=== PATIENT | female | born 1985 | race Caucasian/White ===

== ENCOUNTER 2018-07-29 08:41 | Day surgery (SDC) | payer OTHER ==
[2018-07-29] MEDS ORDERED: OLIVE OIL 118 ML BTL MISC ONE (08:47)
[2018-07-29] MEDS ORDERED: TERBUTALINE SULFATE 1 MG/ML VIAL IV ONE (08:47)
[2018-07-29] MEDS ORDERED: OLIVE OIL 118 ML BTL ONE (08:48)
[2018-07-29] MEDS ORDERED: TERBUTALINE SULFATE 1 MG/ML VIAL ONE (08:49)
[2018-07-29 09:44] LABS: PLATELET COUNT 189 10^3/uL (150-400)
--- NOTE | 2018-07-29 09:44 | GHP ---
DATE OF ADMISSION: 07/29/2018 ADMISSION DIAGNOSIS: Intrauterine at 37+ weeks, at breech presentation. REASON FOR ADMISSION: Planned external cephalic version HISTORY OF PRESENT ILLNESS: The patient are a 33-year-old 1, para 0, who is 37+ weeks gestat ion. Her estimated date of confinement is 08/15/2018, dated by a last menstrual period of 11/08/2017 , consistent with a 1st-trimester ultrasound. She transferred to [facility] at [address] [facility]. Baby has been in a breech presentation and management options were reviewed with the amanda yee and patient is electing to proceed with an external cephalic version. Risks of placental abruption , rupture of membranes, distress, need for emergency and impact on baby were discusse d extensively with the patient and the father of the baby and they are signing consent and agree to felix ivory. MEDICAL HISTORY: Negative. MEDICATIONS: vitamins. SURGICAL HISTORY: Eye surgery x2. ALLERGIES: No known drug allergies. SOCIAL HISTORY: Patient is . 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 She denies tobacco, alcohol, or drug use. FAMILY MEDICAL HISTORY: Noncontributory. 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 Periods every 28 days, lasting 4 days. She is a 1, para 0 . Current has been uncomplicated with the exception of the breech presentation. The ayse nt does have a history of an abnormal Pap smear in 2011. She had a colposcopy in 2011 and 2014, whic h were both negative. She has a history of HPV but denies any history of any other sexually transmit martha diseases. REVIEW OF SYSTEMS: A 10-point review of systems is negative. Positive movement. No loss of f luid. No vaginal bleeding. She denies any headache or changes in vision. PHYSICAL EXAMINATION: VITAL SIGNS: The patient's vital signs are stable. GENERAL APPEARANCE: Aler t and oriented x3. PSYCH: Appropriate affect. MUSCULOSKELETAL: Grossly intact. HEART: Regular, regular. LUNGS: Clear to auscultation bilaterally. ABDOMEN: Gravid, nondistended, nontender. EXT REMITIES: Reveal no calf tenderness or edema. PELVIC: Deferred. is in the konrad breech pre sentation with subjectively adequate amniotic fluid. LABS: Blood type O positive. Antibody screen negative. Rubella immune. GBS positive. HB sAg negative. HIV negative. Her 50 g glucose was 112. ASSESSMENT/PLAN: A 33-year-old, 1, para 0, who is 37+ weeks gestation, here for an external cephalic version. Risks and benefits have been extensively reviewed with the patient and patient has been properly consented. /[id number]/MODL
[2018-07-29 10:14] VITALS: BP 103/72
[2018-07-29] MEDS ORDERED: LR 1,000 ML IV PRN (10:16)
--- NOTE | 2018-07-29 11:39 | GOP ---
DATE OF OPERATION: 07/29/2018 SURGEON: Petra Tom DO MANAGER MANAGEMENT: Katarina Vázquez CNM. PREOPERATIVE DIAGNOSIS: POSTOPERATIVE DIAGNOSIS: PROCEDURE PERFORMED: Attempted external cephalic version. FINDINGS: DESCRIPTION OF PROCEDURE: After status was found to be reassuring by nonstress test, patient w as given 0.25 mg of terbutaline intravenously, with a slow push. status remained reassuring. Baby had been previously found to be in a breech presentation and we attempted 2 forward rolls and fe tus tolerated the procedure. Baby went from being face toward maternal right to occiput posterior wi th the spine toward her back, so we decided to discontinue attempting external cephalic version as we could not get a good hold of the baby. status remained reassuring following the procedure. Jac agosto discussed labor precautions and kick counts, and patient was discharged to home. She will schedule a section after 39 weeks and patient is to call us and let us know if anything happens befo re then. Thank you end dictation. /[id number]/MODL
== END 2018-07-29 12:20 | disposition home or self-care (01) ==
LOC: FOBOP 08:41
PROVIDERS: ATTEND Obstetrics & Gynecology
DX: O32.1XX0 Maternal care for breech presentation, not applicable or unspecified (principal); Z3A.37 37 weeks gestation of pregnancy
CPT/HCPCS: J3105

== ENCOUNTER 2018-08-10 05:27 | Inpatient (IN) | payer OTHER ==
--- NOTE | 2018-07-31 17:59 | GHP ---
PLANNED PROCEDURE: Primary low transverse section for breech presentation. INDICATION: The patient is a 33-year-old, 1, para 0, who will be 39+ weeks gestation. Her estimated date of confinement is 08/15/2018 consistent with a last menstrual period of 11/08/2017 consistent with a 12 week ultrasound. Patient initiated care in [place] and moved to [place] for a job at early in . Her insurance changed and she transferred to [facility] at 25 weeks. Patient's has been overall uncomplicated. Infant was found to be in the breech presentation at 35 weeks gestation. The baby persistently in the breech presentation, underwent an external cephalic version at 37 weeks and 4 days and unfortunately that version was not successful and the baby is still in the breech presentation, so patient will be scheduled for primary low transverse section. The patient will continue doing maneuvers to try to get the baby to flip and obviously the C -section will be canceled if the baby is successful at flipping. Risks and benefits have been reviewed extensively with the patient. The patient has been properly consented. MEDICAL HISTORY: Varicella nonimmune. History of HPV. MEDICATIONS: vitamins and iron. SURGICAL HISTORY: Multiple eye surgeries. ALLERGIES: Celecoxib which causes swelling. SOCIAL HISTORY: Patient is . She works at . She denies tobacco, alcohol, or drug use. FAMILY MEDICAL HISTORY: Noncontributory. 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 Periods every 28 days, lasting 4 days. She is a 1, para 0. Current has been uncomplicated with the exception of the baby in breech presentation and undergoing attempted external cephalic version. The patient does have a history of abnormal Pap smears. The colposcopy was negative. Repeat Pap smears have been negative. She does have a history of HPV but denies any history of any other sexually transmitted diseases. PHYSICAL EXAMINATION: VITAL SIGNS: The patient's vital signs are stable. GENERAL APPEARANCE: Alert and oriented x3. NECK: Mobile and supple. MUSCULOSKELETAL: Grossly intact. PSYCH: Grossly intact. HEART: Rate is regular. LUNGS: Clear to auscultation bilaterally. ABDOMEN: Gravid, nondistended, nontender. EXTREMITIES: Reveal no calf tenderness or edema. The baby was noted to be in breech presentation. PELVIC: Cervical exam is deferred. LABS: Blood type O positive. Antibody screen negative. Rubella immune. GBS positive. HBsAg negative. HIV negative. Her 50 g glucose was 112. She is varicella nonimmune. REVIEW OF SYSTEMS: 10-point review of systems is negative. Positive movement. No loss of fluid. She denies any headaches or changes in vision. ASSESSMENT AND PLAN: A 33-year-old, 1, para 0, who will be 39+ weeks gestation with baby in breech presentation and failed external cephalic version. She will undergo a primary low transverse section at 39+ weeks. Risks of bleeding, infection, damage to bowel, bladder, major blood vessels were reviewed with the patient. The patient has been properly consented. /[id number]/MODL MTDD
[2018-08-10] MEDS ORDERED: CITRIC ACID/SODIUM CITRATE 30 ML UDCUP PO ONE (06:18)
[2018-08-10] MEDS ORDERED: LR 500 ML IV ONE (06:18)
[2018-08-10] MEDS ORDERED: ceFAZolin 2 GM/DEXTROSE 100 ML IV ONE (06:18)
[2018-08-10] MEDS ORDERED: LR 1,000 ML IV SCH (06:30)
[2018-08-10 06:47] LABS: PLATELET COUNT 223 10^3/uL (150-400)
[2018-08-10] MEDS ORDERED: BUPIVACAINE/DEXTROSE 7.5MG/ML 2 ML SPINAL AMP SP ONE (07:23)
[2018-08-10] MEDS ORDERED: morphINE PF 10 MG/10 ML INJ ONE (07:23)
[2018-08-10] MEDS ORDERED: morphINE PF 5 MG/10 ML INJ ONE (07:26)
--- NOTE | 2018-08-10 07:34 | PREANESOB ---
Obstetric Pre-Anesthesia Info - General Info Proposed Procedure: C/S NPO Start Time: 00:00 : 1 Para: 0 CARIDAD: 08/15/18 Gestational Age: 39 week(s) and 2 day(s) - Info Status: Full Term FHR Pattern: Reassuring - Labor Status Section History: Primary Indications for Current Section: Breech Labor Epidural: No Anesthesia Allergies/Adverse Reactions: Allergy/AdvReac Type Severity Reaction Status Date / Time celecoxib [From Celebrex] Allergy Verified 08/10/18 06:11 Home Medications: Medication Instructions Recorded Iron 1 tab PO DAILY 08/10/18 1 tab PO 08/10/18 Visit Medications: Generic Name Dose Route Start Last Admin Trade Name Freq PRN Reason Stop Dose Admin Lactated Ringer's 1,000 mls @ 125 mls/hr 08/10/18 06:30 08/10/18 07:03 Lr IV 08/11/18 06:29 1,000 mls CONT SHRUTHI Administration Discontinued Medications Generic Name Dose Route Start Last Admin Trade Name Freq PRN Reason Stop Dose Admin Bupivacaine HCl/Dextrose Confirm 08/10/18 07:23 Marcaine Spinal Administered 08/10/18 07:24 Dose 2 ml SP .STK-MED ONE Citric Acid/Sodium Citrate 30 ml 08/10/18 06:18 08/10/18 07:02 Bicitra PO 08/10/18 06:19 30 ml ONCALL ONE Administration Cefazolin Sodium/Dextrose 100 mls @ 200 mls/hr 08/10/18 06:18 08/10/18 07:02 Ancef IV 08/10/18 06:47 100 mls ONCALL ONE Administration Protocol Lactated Ringer's 500 mls @ 0 mls/hr 08/10/18 06:18 Lr IV 08/10/18 06:19 ONCE ONE As Directed Morphine Sulfate Confirm 08/10/18 07:23 Morphine Pf 10 Mg/10 Ml Administered 08/10/18 07:24 Dose 10 mg .ROUTE .STK-MED ONE Morphine Sulfate Confirm 08/10/18 07:26 Morphine Pf 5 Mg/10 Ml Administered 08/10/18 07:27 Dose 5 mg .ROUTE .STK-MED ONE - Anesthesia History Response to Local Anesthetics: Not Applicable Anesthesia & Operative History: No Prior Problems Family Anesthesia History: Not Applicable - Vital Signs Latest Vital Signs (Nursing): Temp Pulse Resp BP Pulse Ox 37.1 C 72 20 95/67 L 95 08/10/18 06:26 08/10/18 06:16 08/10/18 06:26 08/10/18 06:26 08/10/18 06:26 Height/Weight (Nursing): Height 167.64 cm Weight 70.307 kg - Focused Exam Neck exam: FROM Mallampati Score: Class 1 Mouth exam: normal dental/mouth exam Pulmonary: no respiratory distress Cardiovascular: regular rate and rhythym Labs: 08/10/18 06:02 Patient ABO/Rh O POSITIVE 08/10/18 06:02 - Plan Consent Signed and on Chart: Yes Patient/Guardian Understands and Agrees to Plan: Yes
[2018-08-10] MEDS ORDERED: METHYLERGONOVINE MAL 0.2 MG/ML INJ ONE (09:11)
[2018-08-10] MEDS ORDERED: NALOXONE HCL 0.4 MG/ML INJ IVP PRN (09:12)
[2018-08-10] MEDS ORDERED: ONDANSETRON 4 MG/2 ML VIAL IVP PRN (09:12)
[2018-08-10] MEDS ORDERED: METOCLOPRAMIDE 10 MG/2 ML VIAL IVP PRN (09:12)
[2018-08-10] MEDS ORDERED: BISACODYL 10 MG SUPP PR PRN (09:53)
[2018-08-10] MEDS ORDERED: POLYETHYLENE GLYCOL 3350 17 GM PKT PO PRN (09:53)
[2018-08-10] MEDS ORDERED: SIMETHICONE 80 MG TAB CHEW PO PRN (09:53)
[2018-08-10] MEDS ORDERED: LACTULOSE 20 GM/30 ML UDCUP PO PRN (09:53)
[2018-08-10] MEDS ORDERED: MAGNESIUM HYDROXIDE 30 ML UDCUP PO PRN (09:53)
[2018-08-10] MEDS ORDERED: DOCUSATE SODIUM 100 MG CAP PO PRN (09:53)
--- NOTE | 2018-08-10 09:55 | POSTANESTH ---
Post Anesthetic Evaluation Cardiovascular Status: Normal, Stable Respiratory Status: Normal, Stable Level of Consciousness/Mental Status: Can Participate in Eval, Alert and Oriented Pain Control: Adequate, Prn Tx Ordered Nausea/Vomiting Control: Adequate, Prn Tx Ordered Complications Possibly Related to Anesthesia: None Noted
--- NOTE | 2018-08-10 09:58 | OBDEL ---
Info Type: Primary Presentation at Delivery: Breech L&D Analgesia/Anesthesia Type: Spinal GBS+: Yes Intrapartum Medications: Generic Name Dose Route Start Last Admin Trade Name Freq PRN Reason Stop Dose Admin Lactated Ringer's 1,000 mls @ 125 mls/hr 08/10/18 06:30 08/10/18 07:03 Lr IV 08/11/18 06:29 1,000 mls CONT SHRUTHI Administration Discontinued Medications Generic Name Dose Route Start Last Admin Trade Name Freq PRN Reason Stop Dose Admin Citric Acid/Sodium Citrate 30 ml 08/10/18 06:18 08/10/18 07:02 Bicitra PO 08/10/18 06:19 30 ml ONCALL ONE Administration Cefazolin Sodium/Dextrose 100 mls @ 200 mls/hr 08/10/18 06:18 08/10/18 08:03 Ancef IV 08/10/18 06:47 100 mls ONCALL ONE Administration Protocol - Care 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 PRESS: Mikayla Hughes Indications for Delivery: Elective Operative Report - Delivery Pre-op Diagnoses: IUP 39 2/7 weeks, breech, failed external cephalic version Post-op Diagnoses: same as preop plus post atony treated with methergine x 1 History of Prior Section: No Nulliparous Prior to Delivery: No Indications for Current Section: Breech Procedure: Scheduled, Low Transverse Surgeon: Petra oTm Business Information Consultant: Courtney Moncada Anesthesiologist: Tariq Power Complications: Other (Specify) (post uterine atony) EBL: 800 Data CARIDAD: 08/15/18 Gestational Age: 39 week(s) and 2 day(s) [place] Delivery Date: 08/10/18 Delivery Time: 09:04 Sex of : Female Score (1 Min): 9 Score (5 Min): 9 ICD10 Worksheet Patient Problems: Problems Problem Status Onset Breech presentation Acute delivery delivered Acute
[2018-08-10] MEDS: KETOROLAC 30 MG/1 ML SDV IVP SCH ×3 (10:13→22:02)
[2018-08-10] MEDS: IBUPROFEN 600 MG TAB PO SCH ×2 (12:03→16:38)
[2018-08-10] MEDS: ACETAMINOPHEN 325 MG TAB PO SCH ×3 (12:45→17:31)
--- NOTE | 2018-08-10 19:57 | OBPP ---
Progress Note Assessment/Plan: Assessment: pod# 1 s/p PLTCS for breech breast feeding uncomplicated post course Plan: 08/10/18 19:55 Subjective/ Course: 08/10/18 19:56 patient is doing very well. pain is well controlled. normal lochia. tolerating diet. normal lochia. working on breast feeding. denies headache and changes in vision,. Objective: 08/10/18 06:02 Patient ABO/Rh O POSITIVE 08/10/18 06:02 Temp Pulse Resp BP Pulse Ox 36.5 C 82 14 91/49 L 99 08/10/18 15:10 08/10/18 15:10 08/10/18 15:10 08/10/18 15:10 08/10/18 15:10 Physical Exam - Physical Exam Neck: non-tender, full range of motion Respiratory: chest non-tender, lungs clear, normal breath sounds Cardiac/Chest: normal peripheral pulses, regular rate, rhythm Abdomen: normal bowel sounds, non-tender, other (fundus firm and non tender) Extremities: normal range of motion, non-tender, normal inspection, normal capillary refill Skin: normal color, warm/dry, other (incicion covered) Neuro/Psych: no motor/sensory deficits, alert, normal mood/affect, oriented x 3
--- NOTE | 2018-08-10 20:02 | PDHPUP ---
<Petra Tom - Last Filed: 08/10/18 19:59> History & Physical Update H&P update statement: This history and physical update is based on an assessment of the patient which was completed after admission or registration (within 24 hours), but prior to the surgery/procedure. DATE OF ADMISSION: 08/10/18 ADMISSION DIAGNOSIS: Intrauterine at 32 2/7+ weeks, breech presentation. REASON FOR ADMISSION: Planned primary low transverese c section HISTORY OF PRESENT ILLNESS: The patient are a 33-year-old 1, para 0, who is 39 2/7+ weeks gestation. Her estimated date of confinement is 08/15/2018 , dated by a last menstrual period of 11/08/2017, consistent with a 1st- trimester ultrasound. She transferred to [facility] at 25-weeks gestation. Baby has been in a breech presentation and management options were reviewed with the patient and patient is electing to proceed with an primary low transverse section. MEDICAL HISTORY: Negative. MEDICATIONS: vitamins. SURGICAL HISTORY: Eye surgery x2. ALLERGIES: No known drug allergies. SOCIAL HISTORY: Patient is . 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 She denies tobacco, alcohol, or drug use. FAMILY MEDICAL HISTORY: Noncontributory. 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 Periods every 28 days, lasting 4 days. She is a 1, para 0. Current has been uncomplicated with the exception of the breech presentation. she had a failed attempted external cephalic version. The patient does have a history of an abnormal Pap smear in 2012. She had a colposcopy in 2011 and 2014, which were both negative. She has a history of HPV but denies any history of any other sexually transmitted diseases. REVIEW OF SYSTEMS: A 10-point review of systems is negative. Positive movement. No loss of fluid. No vaginal bleeding. She denies any headache or changes in vision. PHYSICAL EXAMINATION: VITAL SIGNS: The patient's vital signs are stable. GENERAL APPEARANCE: Alert and oriented x3. PSYCH: Appropriate affect. MUSCULOSKELETAL: Grossly intact. HEART: Regular, regular. LUNGS: Clear to auscultation bilaterally. ABDOMEN: Gravid, nondistended, nontender. EXTREMITIES: Reveal no calf tenderness or edema. PELVIC: Deferred. is in the konrad breech presentation with subjectively adequate amniotic fluid. LABS: Blood type O positive. Antibody screen negative. Rubella immune. GBS positive. HBsAg negative. HIV negative. Her 50 g glucose was 112. ASSESSMENT/PLAN: A 33-year-old, 1, para 0, who is 39 2/7 weeks gestation, here for a primary low transverse c section Risks and benefits have been extensively reviewed with the patient and patient has been properly consented. <Sonja Ortega - Last Filed: 08/11/18 09:32> History & Physical Update H&P update statement: This history and physical update is based on an assessment of the patient which was completed after admission or registration (within 24 hours), but prior to the surgery/procedure. H&P update: changes noted (admit diagnosis is incorrect -- pt has 39w2d gestation, not 32w2d)
[2018-08-10] MEDS: SENNOSIDES/DOCUSATE SODIUM TAB PO SCH (22:02)
[2018-08-11] MEDS: ACETAMINOPHEN 325 MG TAB PO SCH ×5 (00:19→21:58)
[2018-08-11] MEDS: IBUPROFEN 600 MG TAB PO SCH ×5 (00:19→21:57)
[2018-08-11] MEDS: KETOROLAC 30 MG/1 ML SDV IVP SCH (04:07)
--- NOTE | 2018-08-11 06:17 | GOP ---
DATE OF OPERATION: 08/10/2018 SURGEON: Petra Tom DO DECORATING MACHINE TENDER: Courtney Moncada ANESTHESIOLOGIST: Tariq Power MD PREOPERATIVE DIAGNOSIS: 1. Intrauterine at 39 and 2/7 weeks' gestation. 2. Konrad breech presentation status failed external cephalic version. POSTOPERATIVE DIAGNOSIS: 1. Intrauterine at 39 and 2/7 weeks' gestation. 2. Konrad breech presentation status failed external cephalic version. 3. atony treated with Methergine 0.2 mg x1. PROCEDURE PERFORMED: Primary low transverse section. FINDINGS: 1. Viable female in the konrad breech presentation at 9:04 a.m. Apgars were 9 and 9. 2. Intact placenta with 3-vessel cord. 3. Normal ovaries, uterus, tubes. ESTIMATED BLOOD LOSS: 800 cc. INDICATIONS: The patient is a 33-year-old, 1, para 0, who transferred to [facility] at 26 weeks' . She had regular care. Baby was found to be in a breech presentation at 36+ weeks at presentation. The patient attempted an external cephalic version which was unsuccessful. She tried multiple other maneuvers, but they were not successful. Baby was found to still be in a breech presentation at 39 weeks' gestation. She presented for a scheduled primary low transverse section. Risks and benefits of the procedure were reviewed with the patient and the patient was properly consented. DESCRIPTION OF PROCEDURE: The patient was taken to the operating room with intravenous fluids in place. She was given 2 g of Ancef intravenously and seated on the operating room table where spinal anesthesia was obtained. She was then repositioned into the dorsal supine position with a leftward tilt. A Samaniego catheter was then placed. Venodynes were placed on her lower extremities. She was then prepped and draped in a normal sterile fashion. Anesthesia was assessed and found to be adequate. A Pfannenstiel skin incision was then made 2 fingerbreadths above the pubic symphysis. The incision was then carried through to the underlying layer of fascia with the Bovie. The fascia was then nicked in the midline and the fascial incision was extended laterally. The superior aspect of the fascial incision was then grasped with a Alvin, tented up, and the underlying rectus muscle dissected off bluntly with the Bovie. The rectus muscle was then in the midline. The peritoneum was then identified, tented up, and entered sharply with Metzenbaum scissors. The incision was extended superiorly and inferiorly with excellent visualization of the bladder. The bladder blade was then inserted. The vesicouterine peritoneum was identified, tented up, and entered sharply with the Metzenbaum scissors. The incision was extended laterally and a bladder flap was created digitally. The bladder blade was then reinserted and the uterus was then incised in a low transverse fashion with a scalpel. The uterine incision was extended laterally. Clear fluid was noted. The 's buttocks were delivered without difficulty and the legs were then delivered, arms were rotated and the head was then delivered without difficulty. No obvious causes for breech presentation were noted. Delayed cord clamping x1 minute was performed. Cord was then clamped x2 and cut and the infant was handed off to awaiting nurse practitioner. Intact placenta with 3- vessel cord delivered without difficulty. The uterus was then exteriorized and cleared of all clots and debris and wrapped in a moist laparotomy sponge. The bladder blade was then reinserted. Ovaries, uterus, and tubes were unremarkable. The uterus was noted to be having decreased tone, so 0.2 mg of Methergine was given intramuscularly. The hysterotomy was closed with 0 Vicryl in a running locked stitch. A second 0 Vicryl suture was used to imbricate the uterine incision. Hemostasis was assured. The uterus was then returned to the patient's abdomen. The gutters were cleared of all clots and debris. The uterus remained hemostatic. Peritoneum was reapproximated with 3-0 Vicryl in a running fashion. Rectus muscle was reapproximated with 2-0 Vicryl in a running fashion. Fascia was closed with 0 Vicryl in a running fashion. Kaylyn tissue was reapproximated with 2-0 Vicryl in a running fashion. The subcuticular layer was then closed with 3-0 in a running subcuticular fashion. Sponge, lap, and needle counts were correct x2. The patient was transferred to the recovery room in stable condition. /[id number]/MODL MTDD
[2018-08-11] MEDS: SENNOSIDES/DOCUSATE SODIUM TAB PO SCH ×2 (09:04→19:32)
--- NOTE | 2018-08-11 10:06 | OBPP ---
Progress Note Assessment/Plan: Assessment: s/p primary c/s--POD 1 anemia Plan: iron BID, routine care 08/11/18 09:56 Subjective/ Course: 08/10/18 19:56 patient is doing very well. pain is well controlled. normal lochia. tolerating diet. normal lochia. working on breast feeding. denies headache and changes in vision,. 08/11/18 09:57 Pt doing well -- has been amb without problems, stone reg diet, doing ok with pain management so far with the duramorph coverage and Toradol. samano just removed. Baby has latched several times without problems. Disc water requirements. Disc iron recs. Objective: 08/11/18 06:08 Patient ABO/Rh O POSITIVE 08/10/18 06:02 Temp Pulse Resp BP Pulse Ox 37.1 C 69 15 84/48 L 95 08/11/18 06:10 08/11/18 06:10 08/11/18 06:10 08/11/18 06:10 08/11/18 06:10 Uterine Position/Fundal Height: Umbilicus -1 Uterine Tone: Firm Physical Exam - Physical Exam Abdomen: non-tender (approp post op tenderness), soft, dressing (CDI, drsg in place) Extremities: non-tender, pedal edema (none) Skin: normal color, warm/dry Neuro/Psych: alert, normal mood/affect
[2018-08-11] MEDS: FERRO-SEQUELS 65 MG TAB.ER PO SCH ×2 (11:16→19:32)
[2018-08-11] MEDS: oxyCODONE IR 5 MG TAB PO PRN ×3 (13:08→22:19)
--- NOTE | 2018-08-11 15:07 | PDPAINCON ---
Pain Management Consultation Patient referred by : Giuseppe - Subjective Pain is: under control Activity: able to ambulate - Objective Technique: spinal opioid Continuous infusion: morphine Sensory and motor exam: block has resolved, no apparent ill effects - Assessment/Plan Assessment/Plan: pain well-controlled, continue current mgmt (Pt POD 1 C- section with spinal duramorph. Pt doing well. Pain under control. No complications.)
[2018-08-12] MEDS: ACETAMINOPHEN 325 MG TAB PO SCH ×4 (04:00→20:03)
[2018-08-12] MEDS: oxyCODONE IR 5 MG TAB PO PRN ×4 (04:01→20:04)
[2018-08-12] MEDS: IBUPROFEN 600 MG TAB PO SCH ×4 (04:01→20:04)
--- NOTE | 2018-08-12 09:08 | OBPP ---
Progress Note Assessment/Plan: Assessment: 1) s/p PCS secondary to breech and failed ECV POD #2 - pt is stable 2) Anemia - pt is asymptomatic Plan: Continue routine post-op care Encourage ambulation Cont iron support prn Plan for d/c home 08/1308/12/18 09:00 Subjective/ Course: 08/10/18 19:56 patient is doing very well. pain is well controlled. normal lochia. tolerating diet. normal lochia. working on breast feeding. denies headache and changes in vision,. 08/11/18 09:57 Pt doing well -- has been amb without problems, stone reg diet, doing ok with pain management so far with the duramorph coverage and Toradol. samano just removed. Baby has latched several times without problems. Disc water requirements. Disc iron recs. 08/12/18 09:02 Pt seen and examined. Sitting on side of bed eating breakfast. Having some incisional pain this am, relief with po meds-Oxy IR kimberley. helps. Pt is OOB, stone regular diet, voiding without difficulty and had BM x1. Minimal lochia. Denies any f/c/n/v/CP or SOB. Working on , baby girl has lost 8% of weight. Objective: 08/11/18 06:08 Patient ABO/Rh O POSITIVE 08/10/18 06:02 Temp Pulse Resp BP Pulse Ox 36.8 C 82 14 96/61 L 95 08/12/18 01:00 08/12/18 01:00 08/12/18 01:00 08/12/18 01:00 08/11/18 21:12 Uterine Position/Fundal Height: Umbilicus -2 Uterine Tone: Firm Physical Exam - Physical Exam General Appearance: WD/WN, alert, no apparent distress Respiratory: lungs clear, normal breath sounds Cardiac/Chest: regular rate, rhythm Abdomen: normal bowel sounds, non-tender (appropriate tenderness), soft, flatus (+), incision (C/D/I, well approximated) Extremities: non-tender, normal inspection Skin: normal color, warm/dry Neuro/Psych: alert, normal mood/affect, oriented x 3
[2018-08-12] MEDS: SENNOSIDES/DOCUSATE SODIUM TAB PO SCH ×2 (09:21→20:04)
[2018-08-12] MEDS: FERRO-SEQUELS 65 MG TAB.ER PO SCH ×2 (09:21→20:03)
[2018-08-13] MEDS: ACETAMINOPHEN 325 MG TAB PO SCH ×3 (02:07→14:14)
[2018-08-13] MEDS: IBUPROFEN 600 MG TAB PO SCH ×3 (02:07→14:14)
[2018-08-13] MEDS: oxyCODONE IR 5 MG TAB PO PRN ×3 (02:08→14:14)
[2018-08-13] MEDS: SENNOSIDES/DOCUSATE SODIUM TAB PO SCH (08:20)
[2018-08-13 08:27] VITALS: BP 101/62
[2018-08-13] MEDS: FERRO-SEQUELS 65 MG TAB.ER PO SCH (09:05)
--- NOTE | 2018-08-13 09:44 | OBPP ---
Progress Note Assessment/Plan: Assessment: Plan: Subjective/ Course: 08/10/18 19:56 patient is doing very well. pain is well controlled. normal lochia. tolerating diet. normal lochia. working on breast feeding. denies headache and changes in vision,. 08/11/18 09:57 Pt doing well -- has been amb without problems, stone reg diet, doing ok with pain management so far with the duramorph coverage and Toradol. samano just removed. Baby has latched several times without problems. Disc water requirements. Disc iron recs. 08/12/18 09:02 Pt seen and examined. Sitting on side of bed eating breakfast. Having some incisional pain this am, relief with po meds-Oxy IR kimberley. helps. Pt is OOB, stone regular diet, voiding without difficulty and had BM x1. Minimal lochia. Denies any f/c/n/v/CP or SOB. Working on , baby girl has lost 8% of weight. Objective: 08/11/18 06:08 Patient ABO/Rh O POSITIVE 08/10/18 06:02 Temp Pulse Resp BP Pulse Ox 36.1 C 74 16 101/62 97 08/13/18 08:00 08/13/18 08:00 08/13/18 08:00 08/13/18 08:00 08/13/18 08:00
--- NOTE | 2018-08-13 11:23 | OBGCSDC ---
General Delivery Information - General Info : 1 Para: 1 Abortions: 0 Type: Primary L&D Analgesia/Anesthesia Type: Spinal Admission Date: 08/10/18 Labs: Patient ABO/Rh O POSITIVE 08/10/18 06:02 Hct 28.4 % (38.0-47.0) L 08/11/18 06:08 - Hospital Course : 08/10/18 19:56 patient is doing very well. pain is well controlled. normal lochia. tolerating diet. normal lochia. working on breast feeding. denies headache and changes in vision,. 08/11/18 09:57 Pt doing well -- has been amb without problems, stone reg diet, doing ok with pain management so far with the duramorph coverage and Toradol. samano just removed. Baby has latched several times without problems. Disc water requirements. Disc iron recs. 08/12/18 09:02 Pt seen and examined. Sitting on side of bed eating breakfast. Having some incisional pain this am, relief with po meds-Oxy IR kimberley. helps. Pt is OOB, stone regular diet, voiding without difficulty and had BM x1. Minimal lochia. Denies any f/c/n/v/CP or SOB. Working on , baby girl has lost 8% of weight. - Delivery Providers Surgeon: Petra Tom Sustainability Specialist: Courtney Moncada Anesthesiologist: Tariq Power - Delivery Indications for Current Section: Breech Surgical Procedures: Scheduled, Low Transverse Intra-op Complications: Other (Specify) (post uterine atony) EBL: 800 [place] Data CARIDAD: 08/15/18 Gestational Age: 39 week(s) and 5 day(s) [place] Delivery Date: 08/10/18 Delivery Time: 09:04 Sex of Infant: Female [place] Weight (gm): 3014 kg Score (1 Min): 9 Score (5 Min): 9
== END 2018-08-13 18:25 | disposition home or self-care (01) | DRG 788 ==
LOC: FLD 05:27 → FOB 12:40
PROVIDERS: ADMIT Obstetrics & Gynecology; ATTEND Obstetrics & Gynecology
PROC: 10D00Z1 Extraction of Products of Conception, Low, Open Approach (ICD-10-PCS; principal; 2018-08-10)
DX: O32.1XX0 Maternal care for breech presentation, not applicable or unspecified (principal); Z37.0 Single live birth; Z3A.39 39 weeks gestation of pregnancy; O75.89 Other specified complications of labor and delivery
CPT/HCPCS: J0690; J1885; J2210; J2274